=== PATIENT | male | born 1965 | race African-American/Black ===

== ENCOUNTER → 2019-01-14 | Outpatient (CLI) | payer BC ==
--- NOTE | 2019-01-14 09:42 | PCVCIMAG ---
APPROVED REPORT Study performed: 01/14/2019 08:59:45 EXAM: Comprehensive 2D, Doppler, and color-flow Echocardiogram Patient Location: Echo lab Status: routine BSA: 2.40 HR: 57 bpmBP: 194/144 mmHg Rhythm: Bradycardia Other Information Study Quality: Adequate Risk Factors: Cardiac Risk Factors: HTN, Hyperlipidemia Indications sleep apnea 2D Dimensions IVSd: 16.56 (7-11mm) LVDd: 50.22 mm PWd: 15.64 (7-11mm)Ascending Ao: 39.43 (22-36mm) LVDs: 35.56 (25-40mm) Left Atrium: 43.58 (27-40mm) Aortic Root: 38.35 mm LV Single Plane 4CH: 56.46 % LV Single Plane 2CH: 60.50 % Biplane EF: 60.4 % Volumes Left Atrial Volume (Systole) Single Plane 4CH: 84.29 mLSingle Plane 2CH: 95.41 mL LA ESV Index: 40.00 mL/m2 Aortic Valve AoV Peak Abraham.: 1.46 m/s AO Peak Gr.: 8.55 mmHgLVOT Max P.43 mmHg LVOT Max V: 1.17 m/s Mitral Valve E/A Ratio: 1.5 MV Decel. Time: 190.04 ms MV E Max Abraham.: 0.73 m/s MV A Abraham.: 0.49 m/s IVRT: 117.65 ms Pulmonary Valve PV Peak Abraham.: 0.99 m/sPV Peak Gr.: 3.95 mmHg Pulmonary Vein P Vein S: 0.34 m/sP Vein A: 0.29 m/s P Vein D: 0.41 m/sP Vein A Dur.: 114.2 msec P Vein S/D Ratio: 0.83 Tricuspid Valve TR Peak Abraham.: 2.62 m/s TR Peak Gr.: 27.45 mmHg Left Ventricle The left ventricle is normal size. There is normal LV segmental wall motion. Moderate concentric left ventricular hypertrophy. Left ventricular systolic function is normal. The left ventricular ejection fraction is within the normal range. LVEF is 55-60%. Grade II - pseudonormal filling dynamics. Right Ventricle The right ventricle is normal size. The right ventricular systolic function is normal. Atria Left atrium is mildly dilated. The right atrium size is normal. Aortic Valve The aortic valve is normal in structure. No aortic regurgitation is present. There is no aortic valvular stenosis. Mitral Valve The mitral valve is normal in structure. Mild to moderate mitral regurgitation. No evidence of mitral valve stenosis. Tricuspid Valve The tricuspid valve is normal in structure. Mild tricuspid regurgitation with PAP of 34 mmHg. Pulmonic Valve The pulmonary valve is normal in structure. Trace pulmonic regurgitation. Great Vessels The aortic root is normal in size. IVC is normal in size and collapses >50% with inspiration. Pericardium There is no pericardial effusion. There is no pleural effusion. <Conclusion> Left ventricular systolic function is normal. There is normal LV segmental wall motion. Moderate concentric left ventricular hypertrophy. LVEF is 55-60%. Moderate diastolic dysfunction The aortic valve is normal in structure. No aortic regurgitation or stenosis The mitral valve is normal in structure. Mild to moderate mitral regurgitation. Mild tricuspid regurgitation with pulmonary artery pressure of 34 mmHg. There is no pericardial effusion.
== END | disposition home or self-care (01) ==
LOC: PCVCIMAG 09:08
PROVIDERS: ATTEND Internal Medicine
DX: I08.1 Rheumatic disorders of both mitral and tricuspid valves (principal); E78.5 Hyperlipidemia, unspecified; G47.33 Obstructive sleep apnea (adult) (pediatric); I11.9 Hypertensive heart disease without heart failure; J45.909 Unspecified asthma, uncomplicated; F17.200 Nicotine dependence, unspecified, uncomplicated
CPT/HCPCS: 93306